=== PATIENT | male | born 1985 | race Two or more races ===

== ENCOUNTER 2019-01-14 05:04 | Inpatient (IN) | payer OTHER ==
[~2019-01-14] VITALS: Ht 170.2 cm; Wt 87.6 kg
[2019-01-14 04:40] VITALS: BP 117/64
--- NOTE | 2019-01-14 04:45 | NUR ---
PT DIRECT ADMIT FROM [facility] UNDER DR Lay DYER. ON TELE 31 INITIAL READING SR 82
[2019-01-14] MEDS ORDERED: MORPHINE SULF INJ 2 MG/ML SYRINGE 1ML IV PRN (05:30)
[2019-01-14] MEDS ORDERED: NITROGLYCERIN 0.4 MG SL TAB SL PRN (05:30)
--- NOTE | 2019-01-14 05:45 | NUR ---
CINDY NAVARRO SUPP NOTIFIED THAT DR Lay DYER WANTS THE CARDIAC CATH SCHEDULED FOR 0800 THIS MORNING
--- NOTE | 2019-01-14 07:25 | NUR ---
PT BROUGHT DOWN TO [employer] SUPER[employer]OR
--- NOTE | 2019-01-14 07:30 | NUR ---
Opening Shift Note Assumed care of patient. No S/S of distress/SOB or pain. Instructed on POC and to call for assist PRN, and patient verbalized understanding. Will continue to monitor for changes Q1hr and PRN.
[2019-01-14] MEDS ORDERED: LIDOCAINE 2%HCL (LOCAL ANESTH.) INJ 20ML MDV ONE ×2 (07:46→08:52)
[2019-01-14] MEDS ORDERED: IOHEXOL 350 MG/ML 100ML IJ ONE (07:46)
[2019-01-14] MEDS ORDERED: ANGIOMAX 250 MG VIAL IV ONE (08:25)
[2019-01-14] MEDS ORDERED: fentaNYL CITRATE 100 MCG/2 ML VL ONE (08:26)
[2019-01-14] MEDS ORDERED: SODIUM CHL 0.9% 0 ML ONE (08:26)
[2019-01-14] MEDS ORDERED: MIDAZOLAM HCL 1MG/1ML-2 ML VIAL ONE ×2 (08:26→08:58)
[2019-01-14] MEDS ORDERED: DOPamine 1600MCG/ML D5W 0 ML IV ONE (09:05)
[2019-01-14] MEDS ORDERED: ATROPINE SULFATE 1 MG/1 ML VIAL ONE (09:06)
[2019-01-14] MEDS ORDERED: EPINEPHrine HCL 1 MG/10 ML SYRG ONE (09:06)
--- NOTE | 2019-01-14 10:36 | NUR ---
PATIENT RETURNED FROM [facility] [employer] [facility] VIA HOSPITAL BED. NO DISTRESS NOTED ON ARRIVAL. WILL CONTINUE TO MONITOR Q1.
[2019-01-14] MEDS ORDERED: HYDROcodone-ACET 5/325MG TAB PO PRN (10:45)
[2019-01-14 10:53] LABS: Basophils # (auto) 0 uL; Basophils % (auto) 0.3 % (0.0-2.0); Eosinophils # (auto) 0.1 uL; Eosinophils % (auto) 1.1 % (0.0-7.0); Hematocrit 40.6 % (41.0-53.0); Hemoglobin 13.8 g/dL (13.5-17.5); Lymphocytes # (auto) 1.7 uL; Lymphocytes % (auto) 22.6 % (10.0-50.0); Mean Corpuscular Hemoglobin 29.7 pg (28.0-32.0); Mean Corpuscular Volume 87.1 fL (80.0-100.0); Monocytes # (auto) 0.6 uL; Monocytes % (auto) 7.4 % (0.0-12.0); Neutrophils # (auto) 5.3 uL; Neutrophils % (auto) 68.6 % (37.0-80.0); Platelet Count (auto) 300 10^3/uL (140-450); Red Blood Cells 4.66 10^6/uL (4.5-5.90); Red Cell Distribution Width 13.2 % (11.8-14.3); White Blood Cell 7.7 10^3/uL (4.4-10.8)
--- NOTE | 2019-01-14 10:53 | NUR ---
ORDER AND TRANSFER SUMMARY FAXED TO [facility] FOR TRANSFER.
[2019-01-14] MEDS: MEPERIDINE HCL (25 MG/ML) 1ML VIAL IV PRN ×2 (11:07→21:25)
[2019-01-14 11:13] LABS: Albumin 3.2 g/dL (3.4-5.0); BUN/Creatinine Ratio 18.3; Calcium 8.8 mg/dL (8.5-10.1); Potassium 3.9 mmol/L (3.5-5.1)
[2019-01-14 11:16] LABS: Bilirubin, Total 0.4 mg/dL (0.2-1.0); Total Protein 6.9 g/dL (6.4-8.2)
[2019-01-14 11:29] LABS: INR 1.05 (0.9-1.15); Partial Thromboplastin Time 30.7 sec (23.78-33.04); Prothrombin Time 11.2 sec (9.27-12.13)
[2019-01-14 11:45] VITALS: BP 112/72
[2019-01-14] MEDS ORDERED: ALUM & MAG HYDROX-SIMETH LIQ(MAALOX) 30 ML GT PRN (12:30)
[2019-01-14] MEDS: SODIUM CHLORIDE 0.9% 1,000 ML IV SCH ×2 (13:00→20:30)
[2019-01-14] MEDS: ASPirin-EC 81 mg tab PO SCH (15:00)
[2019-01-14] MEDS: METOPROLOL TARTRATE 25 MG TAB PO SCH ×2 (15:00→22:01)
[2019-01-14 16:59] VITALS: BP 136/82
[2019-01-14 18:32] LABS: BUN/Creatinine Ratio 16.7; Calcium 8.1 mg/dL (8.5-10.1); Potassium 3.9 mmol/L (3.5-5.1)
--- NOTE | 2019-01-14 19:05 | NUR ---
OPEN SHIFT NOTE PATIENT IS ALERT AND ORIENTED X4, ON ROOM AIR. 20 GAUGE IN THE RIGHT AC IS INTACT AND PATENT. FAMILY IS AT BEDSIDE. POC DISCUSSED AND QUESTIONS ANSWERED, BED IS LOCKED IN LOWEST POSITION WITH SIDE RAILS UP X2. CALL LIGHT IS WITHIN REACH. WILL CONTINUE TO ROUND Q1HR AND PRN.
[2019-01-14 22:00] VITALS: BP 119/74
[2019-01-14] MEDS ORDERED: ATORVASTATIN 20 MG TAB PO SCH (22:00)
[2019-01-14] MEDS: PANTOPRAZOLE 40 MG/10 ML VIAL IV SCH (22:03)
[2019-01-15] MEDS: SODIUM CHLORIDE 0.9% 1,000 ML IV SCH (01:45)
[2019-01-15] MEDS: MEPERIDINE HCL (25 MG/ML) 1ML VIAL IV PRN (01:46)
[2019-01-15 05:32] VITALS: BP 114/69
--- NOTE | 2019-01-15 07:00 | NUR ---
Opening Shift Note Assumed care of patient, awake, alert, and oriented x4. No S/S of distress/SOB or pain. IV in right AC 20 gauge asymptomatic, intact, patent, and infusing normal saline at 125 mL/hour. Bed locked and in lowest position and call light is within reach. Instructed on POC and to call for assist PRN, and patient verbalized understanding. Will continue to monitor for changes Q1hr and PRN.
[2019-01-15 08:45] VITALS: BP 115/67
[2019-01-15] MEDS ORDERED: MET25T PO (09:03)
[2019-01-15] MEDS ORDERED: PANT40TA2 PO (09:03)
[2019-01-15] MEDS ORDERED: GICOCKTAIL GT (09:03)
[2019-01-15] MEDS ORDERED: ASP81EC PO (09:03)
[2019-01-15] MEDS ORDERED: ATOR20TA50 PO (09:03)
--- NOTE | 2019-01-15 09:30 | NUR ---
DR. JORDAN AT BEDSIDE, NEW ORDERS RECEIVED.
[2019-01-15] MEDS: METOPROLOL TARTRATE 25 MG TAB PO SCH (10:00)
[2019-01-15] MEDS: ASPirin-EC 81 mg tab PO SCH (10:00)
[2019-01-15] MEDS: PANTOPRAZOLE 40 MG/10 ML VIAL IV SCH (10:00)
[2019-01-15 10:43] VITALS: BP 115/67
--- NOTE | 2019-01-15 11:42 | NUR ---
Discharge instructions given as ordered. Encourage to follow up with PMD as instructed. All questions and concerns addressed. Patient verbalized understanding. Medication reconciliation form completed and copy given to patient. IV removed with catheter intact, pressure dressing applied. Telemetry unit returned to [facility]. Patient taken to vehicle via wheelchair with all personal belongings, accompanied by family member. No distress noted at time of departure.
== END 2019-01-15 12:00 | disposition home or self-care (01) | DRG 282 ==
LOC: TELE-WESTW 05:04 → EDSEX 05:04
PROVIDERS: ADMIT Nurse Practitioner; ATTEND Family Medicine
PROC: 4A023N7 Measurement of Cardiac Sampling and Pressure, Left Heart, Percutaneous Approach (ICD-10-PCS; principal; 2019-01-14)
PROC: B2111ZZ Fluoroscopy of Multiple Coronary Arteries using Low Osmolar Contrast (ICD-10-PCS; 2019-01-14)
PROC: B2151ZZ Fluoroscopy of Left Heart using Low Osmolar Contrast (ICD-10-PCS; 2019-01-14)
PROC: B41F1ZZ Fluoroscopy of Right Lower Extremity Arteries using Low Osmolar Contrast (ICD-10-PCS; 2019-01-14)
DX: I21.4 Non-ST elevation (NSTEMI) myocardial infarction (principal); E86.1 Hypovolemia; E66.09 Other obesity due to excess calories; E87.8 Other disorders of electrolyte and fluid balance, not elsewhere classified; K21.9 Gastro-esophageal reflux disease without esophagitis; R09.02 Hypoxemia; I20.0 Unstable angina; Z68.30 Body mass index [BMI] 30.0-30.9, adult
CPT/HCPCS: 36415; 71045; 80048; 80053; 80061; 84484; 85025; 85610; 85730; A6257; C9113; G0378; J0461; J2250

== ENCOUNTER 2025-09-09 10:45 | Outpatient (CLI) | payer MEDICAID ==
[~2025-09-09 10:45] MED LIST: ASPI-394 PO; ATOR20TA50 PO; GICOCKTAIL GT; MET25T PO; PANT40TA2 PO
[2025-09-09] MEDS ORDERED: ALBUTEROL SULF 2.5 MG/0.5ML(0.5%) NEB SOLN ONE (11:00)
== END 2025-09-09 17:00 | disposition home or self-care (01) ==
LOC: RT 10:45
PROVIDERS: ATTEND Internal Medicine Pulmonary Disease
DX: J45.909 Unspecified asthma, uncomplicated (principal); R06.00 Dyspnea, unspecified
CPT/HCPCS: 94060; 94727; 94729